=== PATIENT | female | born 1955 | race Caucasian/White ===

== ENCOUNTER 2019-08-06 10:09 | Emergency (ER) | payer MEDICAID ==
[~2019-08-06] VITALS: Ht 170.2 cm; Wt 95.5 kg
[~2019-08-06 10:09] MED LIST: AMITRIPTYLINE150 MG PO; JEVITY 1.5 CAL237 ML PT; K-DUR20 MEQ PO; NORCO 10/325 TA1 TA1 PO; PERCOCET 10/3251 TA1 PO; PRINIVIL10 MG PO; SEROQUEL50 MG PO; XANAX2 MG PO
[2019-08-06 10:17] VITALS: Ht 170.2 cm; Wt 95.5 kg
[2019-08-06] MEDS ORDERED: LISINOPRIL-HCT1 EAC8 PO (10:18)
[2019-08-06] MEDS ORDERED: PERCOCET 10-321 EAC1 PO (10:18)
[2019-08-06] MEDS ORDERED: XANAX2 MG PO (10:19)
[2019-08-06] MEDS ORDERED: K-DUR20 MEQ PO (10:19)
[2019-08-06] MEDS ORDERED: NEURONTIN600 MG PO (10:19)
[2019-08-06 11:51] LABS: BACTERIA FEW /hpf (NEGATIVE); BILIRUBIN NEGATIVE (NEGATIVE); EPITHELIAL CELLS 0-5 /hpf (0-5); GLUCOSE NEGATIVE (NEGATIVE); KETONE NEGATIVE (NEGATIVE); NITRITE NEGATIVE (NEGATIVE); RED CELLS - URINE 0-5 /hpf (0-5); UROBILINOGEN NORMAL (NORMAL); WHITE CELLS - URINE RARE /hpf (NEGATIVE)
[2019-08-06 11:52] LABS: HYALINE CAST OCC /lpf (NONE SEEN)
[2019-08-06 15:16] VITALS: BP 104/99
== END 2019-08-06 15:10 | disposition home or self-care (01) ==
LOC: D.ER 10:09
PROVIDERS: Family Medicine
DX: M54.5 Low back pain (principal); G89.29 Other chronic pain; S32.059A Unspecified fracture of fifth lumbar vertebra, initial encounter for closed fracture; W19.XXXA Unspecified fall, initial encounter; Y93.9 Activity, unspecified; Y92.9 Unspecified place or not applicable; I10 Essential (primary) hypertension; I25.2 Old myocardial infarction; Z72.0 Tobacco use

== ENCOUNTER 2019-12-12 10:08 | Inpatient (IN) | payer MEDICAID ==
[~2019-12-12] VITALS: Ht 170.2 cm
[2019-12-12] VITALS (7 sets, daily range): BP systolic 97–160; BP diastolic 61–71; Ht 170.2 cm
[~2019-12-12 10:08] MED LIST changes: +LISINOPRIL-HCT1 EAC8 PO; +NEURONTIN600 MG PO; +PERCOCET 10-321 EAC1 PO
--- NOTE | 2019-12-12 11:50 | NUR ---
FLU AND COVID SWABS OBTAINED AND SENT TO THE LAB.
[2019-12-12 11:55] LABS: BASOPHILS 0.3 % (0-2); EOSINOPHILS 2.6 % (0-7); HEMATOCRIT 44.2 % (36.0-48.0); HEMOGLOBIN 14.5 g/dL (12-16); IMMATURE GRANULOCYTES 0.2 % (0-5); MCH 30.7 pg (26.0-34.0); MCHC 32.8 g/dL (31.0-37.0); MCV 93.4 fL (80.0-100.0); MEAN PLATELET VOLUME 11.5 fL (7.4-10.4); MONOCYTES 10.4 % (2-11); NEUTROPHILS 58.5 % (40-80); RBC 4.73 10x6/uL (4.00-5.40); RDW 14.8 % (11.5-14.5); WBC 6.5 10x3/uL (4.8-10.8)
[2019-12-12 11:58] LABS: PLATELET COUNT 163 10x3/uL (130-400)
[2019-12-12 12:10] LABS: CALC OSMOLALITY 277 mosm/kg (275-300); CALCIUM 8.5 mg/dL (8.5-10.1); CARBON DIOXIDE 30.6 mmol/L (21.0-32.0); CHLORIDE - SERUM 106 mmol/L (98-107); CREATININE - SERUM 0.9 mg/dL (0.6-1.3); GLUCOSE 93 mg/dL (74-106); POTASSIUM - SERUM 3.6 mmol/L (3.5-5.1); SODIUM 140 mmol/L (136-145); UREA NITROGEN 9 mg/dL (7-18); eGFR NON AFRICAN AMERICAN 66 mL/min (90-120)
[2019-12-12 12:11] LABS: APTT 29.3 SECONDS (22.8-39.4)
[2019-12-12 12:12] LABS: INR 1.05 (0.85-1.17); PROTIME 13.7 SECONDS (11.6-15.0)
[2019-12-12 12:26] LABS: ALBUMIN 3.5 g/dL (3.4-5.0); ALKALINE PHOSPHATASE 89 U/L (30-120); ALT (SGPT) 28 U/L (10-68); CKMB 0.9 U/L (0.0-3.6); CREATINE KINASE 29 UL (21-215); PRO BNP 177 pg/mL (0-125); PROTEIN - SERUM 7.1 g/dL (6.4-8.2); TROPONIN-I < 0.017 ng/mL (0.000-0.060)
[2019-12-12 12:42] LABS: D-DIMER-QUANTITATIVE 2.53 ug/mLFEU (0.20-0.54)
--- NOTE | 2019-12-12 14:07 | NUR ---
CC URINE SENT TO LAB.
--- NOTE | 2019-12-12 17:20 | NUR ---
RECEIVED PT FROM ER. PT IS AAO AND UP WITH ASSIST. FALL PRECAUTIONS IN PLACE. CALL LIGHT W/I REACH. PIV SALINE LOCKED. RR EVEN AND UNLABORED ON 4L 02. NO S/S OF DISTRESS NOTED. PT IS HIGHLY ANXIOUS, DEMANDING, AND IS CONCERNED ABOUT WHY SHE HASNT EATEN YET. WILL CTM.
--- NOTE | 2019-12-12 17:42 | NUR ---
QUICKSTART, ASSESSMENT, HISTORY, AND MED REQ COMPLETE. WILL CTM.
--- NOTE | 2019-12-12 18:07 | NUR ---
NOTIFIED PATIENT OF NEGATIVE COVID RESULTS AND SHE REQUESTED AN AMA FORM TO SIGN SO THAT SHE COULD GO HOME STATING THAT SHE HAD TO GET HOME TO SEE HER FAMILY. NOTIFIED CHEO GHOTRA. MAL DEACCESSED WITH NEEDLE INTACT. SHUTTLE VAN DRIVER NOTIFIED.
== END 2019-12-12 18:30 | disposition left against medical advice (07) | DRG 192 ==
LOC: D.ER 10:08 → D.M2 14:47
PROVIDERS: Family Medicine; ADMIT Emergency Medicine; ATTEND Emergency Medicine
DX: J44.1 Chronic obstructive pulmonary disease with (acute) exacerbation (principal); I10 Essential (primary) hypertension; F41.9 Anxiety disorder, unspecified; Z72.0 Tobacco use

== ENCOUNTER 2020-08-22 10:53 | Emergency (ER) | payer MEDICARE, MEDICAID ==
[~2020-08-22] VITALS: Ht 170.2 cm; Wt 83.6 kg
[2020-08-22 10:57] VITALS: Ht 170.2 cm; Wt 83.6 kg
[2020-08-22 12:53] LABS: BASOPHILS 0.2 % (0-2); EOSINOPHILS 0.1 % (0-7); HEMATOCRIT 43.4 % (36.0-48.0); HEMOGLOBIN 14.5 g/dL (12-16); LYMPHOCYTES 13.9 % (15-50); MCH 30.2 pg (26.0-34.0); MCHC 33.4 g/dL (31.0-37.0); MCV 90.5 fL (80.0-100.0); MEAN PLATELET VOLUME 9.3 fL (7.4-10.4); MONOCYTES 7.1 % (2-11); NEUTROPHILS 78.7 % (40-80); PLATELET COUNT 192 10x3/uL (130-400); RBC 4.79 10x6/uL (4.00-5.40); RDW 15.2 % (11.5-14.5); WBC 9.4 10x3/uL (4.8-10.8)
[2020-08-22 13:11] LABS: APTT 25.7 SECONDS (22.8-39.4); INR 1.14 (0.85-1.17); PROTIME 13.6 SECONDS (11.6-15.0)
[2020-08-22 13:12] LABS: CALC OSMOLALITY 283 mosm/kg (275-300); CALCIUM 9.1 mg/dL (8.5-10.1); CARBON DIOXIDE 30.7 mmol/L (21.0-32.0); CHLORIDE - SERUM 105 mmol/L (98-107); CREATININE - SERUM 0.7 mg/dL (0.6-1.3); GLUCOSE 95 mg/dL (74-106); POTASSIUM - SERUM 4.1 mmol/L (3.5-5.1); SODIUM 142 mmol/L (136-145); UREA NITROGEN 15 mg/dL (7-18); eGFR NON AFRICAN AMERICAN 89 mL/min (90-120)
[2020-08-22 13:17] LABS: ALBUMIN 3.6 g/dL (3.4-5.0); ALKALINE PHOSPHATASE 57 U/L (30-120); ALT (SGPT) 23 U/L (10-68); PROTEIN - SERUM 7.1 g/dL (6.4-8.2)
[2020-08-22 14:50] VITALS: BP 125/59
== END 2020-08-22 14:52 | disposition home or self-care (01) ==
LOC: D.ER 10:53
PROVIDERS: Family Medicine
DX: R07.9 Chest pain, unspecified (principal); M25.562 Pain in left knee; M79.10 Myalgia, unspecified site; M79.662 Pain in left lower leg; T14.8XXA Other injury of unspecified body region, initial encounter; I10 Essential (primary) hypertension; J44.9 Chronic obstructive pulmonary disease, unspecified; Z72.0 Tobacco use; W19.XXXA Unspecified fall, initial encounter; Y93.9 Activity, unspecified; Y92.9 Unspecified place or not applicable